=== PATIENT | female | born 1935 | race Caucasian/White ===

== ENCOUNTER → 2018-01-18 | Outpatient (CLI) | payer MEDICARE, OTHER ==
[~2018-01-18] MED LIST: ADULT LOW DOSE81 MG PO; AMARYL1 MG PO; COZAAR 50 MG TA50 M2 PO; DIGOXIN250 MCG PO; GLUCOPHAGE500 MG PO; HYDROCODONE-ACE15 ML PO; LISINOPRIL5 MG PO; MEDROLDOSEPACK PO; METFORMIN HCL500 MG PO; METFORMIN PO; METOPROLOL SUC100 MG PO; NAPROSYN500 MG PO; NEURONTIN 300300 M1 PO; OMEPRAZOLE 20 M20 M1 PO; OMEPRAZOLE20 MG PO; OMEPRAZOLE40 MG PO; PACERONE 200 M200 M1 PO; PRADAXA150 MG PO; PROTONIX40 M1 PO; SIMVASTATIN20 MG PO; TRIAMTERENE-HC1 EAC3 PO
== END ==
LOC: M.RAD 10:23
DX: Z12.31 Encounter for screening mammogram for malignant neoplasm of breast (principal)

== ENCOUNTER 2020-01-03 09:17 | Observation (INO) | payer MEDICARE, OTHER ==
[~2020-01-03] VITALS: Ht 167.6 cm; Wt 90.3 kg
[2020-01-03] VITALS (11 sets, daily range): BP systolic 137–171; BP diastolic 75–93
--- NOTE | ~2020-01-03 | D ---
[address] [address] DISCHARGE SUMMARY Name: KANDIS SMITH Daniel Room: [address] MRob#: [id number] Admission: 01/03/20 Attend Phys: Moshe Cabrera MD Discharge: Date of : 37 Report #: [id number] THIS REPORT FOR: //name// cc: Bety Wan Linda J. DO THIS REPORT FOR: //name// CC: Bety Palomino DISCHARGE DIAGNOSES: 1. Coronary artery disease. 2. Unstable angina. 3. Chronic atrial fibrillation. 4. Chronic anticoagulation. 5. Hypertension. 6. Percutaneous coronary intervention to the LAD. PROCEDURES DURING THE HOSPITALIZATION: 1. Left heart catheterization. 2. Coronary angiography. 3. Percutaneous coronary intervention to the mid left anterior descending coronary artery. 4. Temporary pacemaker placement. HOSPITAL COURSE: The patient was admitted with progressive chest discomfort. Stress testing suggested anteroapical ischemia. On catheterization, she was found to have a high grade 99% mid left anterior descending coronary artery stenosis. The patient underwent percutaneous coronary intervention with a single drug-eluting stent placed to the mid left anterior descending coronary artery with excellent result. The patient did have transient heart block with a procedure necessitating temporary pacemaker placement. The patient's temporary pacemaker was able to remove several hours later as her heart rhythm had recovered. She does have chronic atrial fibrillation. She had been on rate controlling medications. The doses were reduced during hospitalization: The patient was started on a statin agent with her new diagnosis of coronary artery disease. The patient's hospital course was otherwise unremarkable. She is being discharged in stable condition. DISCHARGE MEDICATIONS: At discharge will be Effient 10 mg p.o. every day, aspirin 81 mg p.o. daily, Pradaxa 150 mg p.o. b.i.d., atorvastatin 40 mg p.o. daily, Nitrostat sublingual p.r.n. Maxzide 75/50 mg 1 tablet daily, metformin 500 mg q.a.m. and 1000 mg q.p.m., losartan 50 mg daily, Protonix 40 mg daily, hydrocodone/acetaminophen 7.5/325 elixir every 4 hours p.r.n. metformin 500 mg by mouth every morning and 1000 g by [place] [address] DISCHARGE SUMMARY Name: KANDIS SMITH Room: [address]#: [id number] Admission: 01/03/20 Attend Phys: Moshe Cabrera MD Discharge: Date of : 37 Report #: [id number] DISPOSITION: The patient is to follow up with our nurse practitioner in 4 weeks and myself in 3 months. By: [id number] MD, FACC /nt
[2020-01-03 10:01] LABS: HEMATOCRIT 38.5 % (37.0-47.0); HEMOGLOBIN 12.8 gm/dL (12.0-15.0); MCH 28.6 pg (26.0-34.0); MCHC 33.3 g/dL (28.0-37.0); MCV 85.7 fL (80.0-100.0); MPV 7.8 fl. (7.2-11.1); RBC 4.49 mil/uL (4.20-5.00); RDW-CV 16.9 % (10.5-14.5); WBC 8.1 thou/uL (4.0-11.0)
[2020-01-03 10:55] LABS: CALCIUM 8.7 mg/dL (8.5-10.1); CREATININE 0.9 mg/dL (0.6-1.3); POTASSIUM 5.1 mmol/L (3.5-5.1)
[2020-01-03 10:57] LABS: APTT 26.7 Seconds (25.0-31.3); INR 1.1; PROTIME 11.4 Seconds (9.20-11.50)
--- NOTE | 2020-01-03 11:22 | EKG ---
[place] [address] ELECTROCARDIOGRAM REPORT Name: KANDIS SMITH Room: [facility]#: [id number] Admission: 01/03/20 Attend Phys: Moshe Cabrera, Discharge: Date of : 37 Date of Service: 01/03/20 1003 Report #: [id number] THIS REPORT FOR: cc: Bety Wan Linda J. 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1935 Requested By: Moshe Cabrera Order Number: [id number] Reading MD: Jackson Durán Measurements Intervals [place] Rate: 63 P: CT: QRS: -4 QRSD: 137 T: -36 QT: 405 QTc: 415 Interpretive Statements Atrial fibrillation Right bundle branch block Compared to ECG 04/25/2013 09:51:33 Right bundle-branch block now present Sinus rhythm no longer present First degree AV block no longer present Electronically Signed On 01-03-2020 11:21:07 BASEBALL GLOVE SHAPER by Jackson Durán [email or web address] <ELECTRONICALLY SIGNED> By: Jackson Durán MD, [facility] 01/03/20 1121 1003 Jackson Durán MD, [facility] /EPI
--- NOTE | 2020-01-03 15:12 | CARD ---
[address] [address] CARDIAC CATH REPORT Name: KANDIS SMITH Room: [address] IN ..#: [id number] Admission: 01/03/20 Attend Phys: Moshe Cabrera MD Discharge: Date of : 37 Report #: [id number] THIS REPORT FOR: //name// cc: Bety Wan Linda J. DO ~ THIS REPORT FOR: //name// APPROVED REPORT Study performed: 01/03/2020 09:58:16 Patient Details The patient is a 84 year-old female Event Personnel Luz Maria Albarado RN Gifted Program Teacher, Seferino Gregory TUNNEL MAN Scrub, Emily Cox RTR Scrub, Moshe Cabrera Director Of Compensation, , Jackson Durán White Mixing Operator, Marcell De Anda TUNNEL MAN, monitor Procedures Performed Left heart catheterization selective coronary arteriography and percutaneous coronary intervention to the mid LAD; a pacemaker from the right femoral approach in the context of high-grade AV block with underlying atrial fibrillation Indication Positive stress test Risk Factors Hypercholesterolemia, Hypertension Admission/Lab Medications/Medications given during procedure Angiomax bolus and infusion Procedure Narrative The patient was brought electively to the Cardiac Catheterization Laboratory and was prepped and draped in a sterile manner. The right femoral was infiltrated with 2% Lidocaine subcutaneous anesthesia. A [place] 6 FR sheath was inserted into the right femoral artery. Coronary angiography was performed using coronary diagnostic catheters. The right coronary system was accessed and visualized with a Diagnostic - JR4 catheter. The left coronary system was accessed and visualized with a Diagnostic - JL4 catheter. The left ventricle was accessed and visualized with a Diagnostic - Ang PIG catheter. Left ventricular/Aortic Valve [place] [address] CARDIAC CATH REPORT Name: KANDIS SMITH Room: [address]#: [id number] Admission: 01/03/20 Attend Phys: Moshe Cabrera MD Discharge: Date of : 37 Report #: [id number] pullback. Pre-demployment femoral angiogram was performed . Closure device was deployed with a 6 Fr Angioseal STS 6Fr. The patient tolerated the procedure well and there were no complications associated with the procedure. There was no hematoma. Intraoperative Conscious Sedation Sedation start time: 1135 Case end Time: 1227 Fentanyl 25 mcg Versed 2 mg Fluoro Time: 14.2 minutes Dose: DAP 397025 cGycm2 1621 mGy Contrast Type and Amount: Visipaque 190 ml Coronary Angiography The patient's coronary anatomy is right dominant. Diagnostic Cath Left Main 0% narrowing LAD 30 Percent proximal LAD narrowing with 90% mid vessel stenosis with a question of intraluminal thrombus at the site of 90% stenosis Circumflex 0% narrowing Right Coronary Dominant vessel with 30% mid vessel narrowing Left Ventriculography Left Ventriculography was not performed. IVUS Findings AngioSculpt PTCA 2.5 X 10mm Hemodynamics The aortic pressure is 151/78 mmHg with a mean of 54 mmHg. The left ventricular pressure is 126/59 mmHg with a mean of mmHg. The left ventricular end diastolic pressure is 60 mmHg. There was no gradient across the aortic valve upon pullback. PCI Technique Lesion Anticoagulation was achieved with Angiomax. Patient was preloaded with Angiomax IV 12 ml. Percutaneous coronary intervention was performed on the mid left anterior descending artery segment. The lesion stenosis prior to intervention was 90% with ROBB 3 flow. A 6F XB LAD 3.5 Guide Catheter was used to engage the ostium. A IG: BMW 190cm Interventional Guidewire was used to cross the [place] [address] CARDIAC CATH REPORT Name: KANDIS SMITH Room: [address]#: [id number] Admission: 01/03/20 Attend Phys: Moshe Cabrera MD Discharge: Date of : 36 Report #: [id number] A Balloon catheter Trek RX 2.25 X 12 was inserted and inflated up to 10.00atm for 8seconds. Additional Inflation: 8.00atm for 8seconds. Additional Inflation: 14.00atm for 15seconds. 10 nando for 6 sec; 2.55 x 10 mm angiosculpt balloon inflated to 14 nando in the mid LAD STENT DEPLOYMENT A drug-eluting stent Xience Ruby 2.5X12mm was inserted and inflated up to 15atm for andseconds. POST STENT DEPLOYMENT BALLOON DILATION A Balloon catheter NC Trek RX 2.75 X 8 was inserted and inflated up to 18atm for 10seconds. Final angiography reveals 0 % stenosis with ROBB 3 flow. COMMENTS Temporary pacemaker inserted prior to the intervention via RFV and sutured in place post intervention BALLOON DILATION A Balloon catheter AngioSculpt PTCA 2.5 X 10mm was inserted and inflated up to 10.00atm for 16seconds. Additional Inflation: 12.00atm for 15seconds. STENT DEPLOYMENT A stent Xience Ruby 2.5X12mm was inserted and inflated up to 10.00atm for 10seconds. Additional Inflation: 12.00atm for 10seconds. Additional Inflation: 14.00atm for 9seconds. POST STENT DEPLOYMENT BALLOON DILATION A Balloon catheter NC Trek RX 2.75 X 8 was inserted and inflated up to 16.00atm for 14seconds. Additional Inflation: 18.00atm for 7seconds. Conclusion #1 significant coronary artery disease characterized by the following: A 30% proximal and 90% mid LAD stenosis with a question of local thrombus at the 90% site B 30% narrowing of the midportion of the dominant right coronary artery #2 [place] [address] CARDIAC CATH REPORT Name: KANDIS SMITH Room: [address] IN [facility]#: [id number] Admission: 01/03/20 Attend Phys: Moshe Cabrera MD Discharge: Date of : 37 Report #: [id number] #3 placement of a temporary pacemaker for high-grade AV block in the setting of underlying atrial fibrillation #4 successful angioplasty atherotomy/atherectomy and stenting of the mid LAD with 0% residual narrowing ROBB-3 flow to the distal vessel and no residual thrombus. Recommendations Cardiac Risk Reduction Program Aggressive Medical Therapy Medications Administered Aspirin (any) Clopidogrel Diagnostic Cath Approved by: Moshe Cabrera MD Date/Time: 01/03/2020 15:08:56 <ELECTRONICALLY SIGNED> By: Jackson Durán MD, [facility] 01/03/20 1511 10 1511Jackson Durán MD, FACC /INF
[2020-01-04] VITALS (26 sets, daily range): BP systolic 116–163; BP diastolic 56–109
[2020-01-04 04:30] LABS: ALBUMIN 3.5 g/dL (3.4-5.0); ALKALINE PHOSPHATASE 95 U/L (46-116); ANION GAP 9 mmol/L (7-16); BUN 20 mg/dL (7-18); CHLORIDE 100 mmol/L (98-107); CHOLESTEROL 145 mg/dL (<200); CO2 30 mmol/L (21-32); GLUCOSE 142 mg/dL (70-99); HDL CHOLESTEROL 51 mg/dL (>40); LDL CHOLESTEROL 82 mg/dL (<100); SGOT 20 U/L (15-37); SGPT 22 U/L (30-65); SODIUM 139 mmol/L (136-145); TC:HDL 2.8 Ratio (Not establshd); TOTAL BILIRUBIN 0.7 mg/dL (<0.1-1.0); TOTAL PROTEIN 8.1 g/dL (6.4-8.2); TRIGLYCERIDE 60 mg/dL (<150); VLDL 12 mg/dL (<40)
[2020-01-04 04:33] LABS: HEMATOCRIT 42.4 % (37.0-47.0); MCH 28.3 pg (26.0-34.0); MCHC 32.9 g/dL (28.0-37.0); MCV 85.9 fL (80.0-100.0); MPV 7.4 fl. (7.2-11.1); RBC 4.94 mil/uL (4.20-5.00); RDW-CV 16.8 % (10.5-14.5); WBC 8.7 thou/uL (4.0-11.0)
[2020-01-04 04:59] LABS: SERUM ASSESSMENT Clear
[2020-01-04] MEDS ORDERED: ASPIR 8181 MG PO (08:00)
[2020-01-04] MEDS ORDERED: EFFIENT10 MG PO (08:00)
[2020-01-04] MEDS ORDERED: METOPROLOL SUC100 MG PO (08:00)
[2020-01-04] MEDS ORDERED: LIPITOR40 MG PO (08:00)
[2020-01-04] MEDS ORDERED: NITROGLYCERIN0.4 MG SUBLING (08:00)
--- NOTE | 2020-01-04 09:46 | EKG ---
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 [employer] Activity: : 1935 Requested By: Moshe Cabrera Order Number: [id number] Dee MD: Jackson Durán Measurements Intervals [place] Rate: 83 P: [place]: QRS: -72 QRSD: 134 T: -40 QT: 408 QTc: 480 Interpretive Statements Atrial fibrillation RBBB and LAFB Compared to ECG 01/03/2020 10:03:39 Left anterior fascicular block now present Electronically Signed On 01-04-2020 9:45:56 ASSISTANT COUNTY ATTORNEY by Jackson Durán [email or web address] <ELECTRONICALLY SIGNED> By: Jackson Durán MD, [facility] 01/04/20 0945 0 0 Jackson Druán MD, [facility] /EPI
[2020-01-04] MEDS ORDERED: PRADAXA150 MG PO (11:06)
[2020-01-04] MEDS ORDERED: METFORMIN HCL500 MG PO (11:13)
[2020-01-04] MEDS ORDERED: GLUCOPHAGE500 MG PO (11:13)
== END 2020-01-04 15:31 | disposition home or self-care (01) ==
LOC: M.CL 09:17 → M.ICU 14:56 → M.TBA-CV 14:56 → M.ICU 14:56
PROVIDERS: ADMIT Internal Medicine Cardiovascular Disease
DX: I25.110 Atherosclerotic heart disease of native coronary artery with unstable angina pectoris (principal); I44.30 Unspecified atrioventricular block; I48.20 Chronic atrial fibrillation, unspecified; I10 Essential (primary) hypertension; E78.00 Pure hypercholesterolemia, unspecified

== ENCOUNTER → 2020-06-05 | Outpatient (CLI) | payer MEDICARE, OTHER ==
[~2020-06-05] MED LIST changes: +ASPIR 8181 MG PO; +EFFIENT10 MG PO; +LIPITOR40 MG PO; +NITROGLYCERIN0.4 MG SUBLING
== END ==
LOC: M.LAB 09:37
PROVIDERS: ATTEND Registered Nurse
DX: I48.21 Permanent atrial fibrillation (principal)

== ENCOUNTER → 2020-06-19 | Outpatient (CLI) | payer MEDICARE, OTHER ==
[~2020-06-19] VITALS: Ht 165.1 cm; Wt 87.1 kg
[2020-06-19 09:52] VITALS: BP 142/81
[2020-06-19 09:56] LABS: HEMATOCRIT 39.4 % (37.0-47.0); HEMOGLOBIN 13.7 gm/dL (12.0-15.0); MCH 32.6 pg (26.0-34.0); MCHC 34.9 g/dL (28.0-37.0); MCV 93.5 fL (80.0-100.0); MPV 7.7 fl. (7.2-11.1); RBC 4.21 mil/uL (4.20-5.00); RDW-CV 14.2 % (10.5-14.5); WBC 9.1 thou/uL (4.0-11.0)
[2020-06-19 10:15] LABS: ANION GAP 12 mmol/L (7-16); BUN 31 mg/dL (7-18); CALCIUM 9.2 mg/dL (8.5-10.1); CHLORIDE 104 mmol/L (98-107); CO2 23 mmol/L (21-32); CREATININE 1.2 mg/dL (0.6-1.3); GLUCOSE 128 mg/dL (70-99); POTASSIUM 3.9 mmol/L (3.5-5.1); SODIUM 139 mmol/L (136-145)
[2020-06-19 10:20] LABS: ALBUMIN 3.9 g/dL (3.4-5.0); ALKALINE PHOSPHATASE 88 U/L (46-116); SGOT 19 U/L (15-37); SGPT 21 U/L (30-65); TOTAL BILIRUBIN 0.6 mg/dL (<0.1-1.0); TOTAL PROTEIN 8.2 g/dL (6.4-8.2)
[2020-06-19 10:25] LABS: APTT 27.4 Seconds (25.0-31.3); INR 1.1; PROTIME 11.3 Seconds (9.20-11.50)
[2020-06-19 10:44] LABS: CHOLESTEROL 105 mg/dL (<200); HDL CHOLESTEROL 46 mg/dL (>40); LDL CHOLESTEROL 41 mg/dL (<100); TC:HDL 2.3 Ratio (Not establshd); TRIGLYCERIDE 90 mg/dL (<150); VLDL 18 mg/dL (<40)
[2020-06-19 10:45] LABS: SERUM ASSESSMENT Clear
[2020-06-19 11:00] VITALS: BP 142/90
[2020-06-19 12:00] VITALS: BP 139/93
--- NOTE | 2020-06-19 13:13 | EKG ---
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
[2020-06-19 14:42] VITALS: BP 135/80
--- NOTE | 2020-06-21 13:30 | CARD ---
[address] [address] CARDIAC CATH REPORT Name: KANDIS SMITH Room: [facility]#: [id number] Admission: 06/19/20 Attend Phys: Moshe Cabrera MD Discharge: Date of : 37 Report #: [id number] THIS REPORT FOR: //name// cc: Bety Wan Linda J. DO ~ APPROVED REPORT Study performed: 06/19/2020 13:00:33 Patient Status: Out-Patient Room #: Event Personnel: Moshe Cabrera Magazine Writer, Elizabeth Sosa RN RN, Seferino Gregory Scrub, Emily Cox RTR Monitor Exam: Insertion of Single Chamber Permanent Pacemaker The patient is a 85 year-old female with a history of . Conscious Sedation Start time: 13:30 End Time: 13:53 Fentanyl 25 mcg Versed 1 mg Implanted Devices: Biotronik Edora 8 SRT, model #951970, serial #[id number] single-chamber pulse generator. Biotronik Solia S 53, model #288928, serial #[id number] ventricular lead. Procedure The patient underwent informed consent. We discussed the details of the procedure including the risks, which include, but not limited to bleeding, infection, vascular damage, cardiac perforation, and pneumothorax. She understood these risks and was willing to proceed. As such, she was brought to the EP/Cardiac Catheterization laboratory in a fasting and sedated state and prepped and draped in a sterile fashion, received IV antibiotics prior to initiation of the procedure and a venogram was performed showing patency of the left axillary vein. The patient underwent conscious sedation, with no related complications. The patient was brought to the EP/Cardiac Catheterization laboratory and the left chest and shoulder were prepped and draped in a sterile manner. During this case, Fluoroscopy and omnipaque 20 ml were used for imaging. The left subclavian region was infiltrated with 2% Lidocaine with Epinephrine subcutaneous anesthesia. A transverse incision was made in [place] [address] CARDIAC CATH REPORT Name: KANDIS SMITH Room: [facility]#: [id number] Admission: 06/19/20 Attend Phys: Moshe Cabrera MD Discharge: Date of : 36 Report #: [id number] The subcutaneous pocket was formed via blunt dissection. Percutaneous venous access was achieved and an introducer sheath was inserted into the left Subclavian vein. Sheaths were positions using the modified Seldinger technique Utilizing fluoroscopic guidance, the ventricular lead wire was advanced over the wires and positioned in the right atria and right ventricle respectively. Capturing and sensing thresholds were verified. Electrode Parameters R Wave: 10.0 mV Ventricular Threshold: 0.5 V at 0.40 ms Ventricular Resistance: 620 ohms Single Chamber The atrial and ventricular leads were then secured using 0 silk sutures. The subcutaneous pocket was irrigated with vancomycin antibiotic solution.The ventricular lead was attached to the appropriate receptacle on the pulse generator and set screws firmly tightened to insure adequate contact and stability. The lead and pulse generator were placed into the subcutaneous pocket. Sharp and sponge counts were confirmed to be correct. At this time the pocket was closed subcutaneously with a 2.0 Vicryl and the skin was closed with a 4.0 Vicryl. The operative site was dressed in sterile fashion with benzoin, steri strips, and stratabsorb and the patient was transferred to the floor in stable condition. Complications The patient tolerated the procedure well and there were no complications associated with the procedure. Findings Specimens Removed: No Estimated Blood Loss: 5 ml Conclusion 1. Atrial fibrillation with slow ventricular response rate. 2. Successful placement of a single-chamber pacemaker with ventricular [place] [address] CARDIAC CATH REPORT Name: SARAHKANDIS Sanchez Room: [facility]#: [id number] Admission: 06/19/20 Attend Phys: Moshe Cabrera MD Discharge: Date of : 37 Report #: [id number] 1. Follow-up site check in 1 week. 2. Follow-up pacemaker interrogation in 1 to 2 months. <ELECTRONICALLY SIGNED> By: Moshe Cabrera MD, FACC 06/21/200 29Michael Selene Cabrera MD, FAC /INF
== END ==
LOC: M.CL 09:22 → EDSTATUS 11:00 → M.CL 11:00
PROVIDERS: ATTEND Internal Medicine Cardiovascular Disease
DX: I48.19 Other persistent atrial fibrillation (principal); R00.1 Bradycardia, unspecified; I10 Essential (primary) hypertension; I25.10 Atherosclerotic heart disease of native coronary artery without angina pectoris; E11.9 Type 2 diabetes mellitus without complications; E78.2 Mixed hyperlipidemia; K21.9 Gastro-esophageal reflux disease without esophagitis; E03.9 Hypothyroidism, unspecified; G47.30 Sleep apnea, unspecified; Z82.49 Family history of ischemic heart disease and other diseases of the circulatory system; Z83.3 Family history of diabetes mellitus; Z79.84 Long term (current) use of oral hypoglycemic drugs; Z79.899 Other long term (current) drug therapy; Z98.890 Other specified postprocedural states; Z98.51 Tubal ligation status; Z85.828 Personal history of other malignant neoplasm of skin

== ENCOUNTER 2021-12-04 14:07 | Inpatient (IN) | payer OTHER ==
[~2021-12-04] VITALS: Ht 167.6 cm; Wt 68.0 kg
[2021-12-04 14:15] VITALS: BP 107/59
[2021-12-04 18:34] LABS: URINE BLOOD 1+ (Negative); URINE COLOR YELLOW; URINE GLUCOSE-RANDOM NEGATIVE (Negative); URINE KETONES TRACE (Negative); URINE NITRITE-REFLEX NEGATIVE (Negative); URINE PROTEIN 1+ (Negative)
[2021-12-04 18:36] LABS: ICTOTEST (BILI CONFIRMATORY) Negative (Negative); URINE BILIRUBIN 1+ (Negative); URINE CLARITY CLOUDY; URINE LEUKOCYTES-REFLEX 2+ (Negative)
[2021-12-04 18:37] LABS: HEMATOCRIT 42.3 % (37.0-47.0); HEMOGLOBIN 13.8 gm/dL (12.0-15.0); MCHC 32.6 g/dL (28.0-37.0); MPV 8.6 fl. (7.2-11.1); NUCLEATED RBCS 0 /100WBC; PLATELET COUNT* 155 thou/uL (150-400); RBC 4.91 mil/uL (4.20-5.00); RDW-CV 16.4 % (10.5-14.5); WBC 15.6 thou/uL (4.0-11.0)
[2021-12-04 18:43] LABS: BACTERIA-REFLEX >30 Many /HPF (None Seen); CASTS None Seen /LPF (None Seen); CRYSTALS None Seen /LPF (None Seen); SQUAMOUS 0-3 Few /LPF (0-3); URINE RBC 3-10 Few /HPF (0-2); URINE WBC-REFLEX >25 Many /HPF (0-5)
[2021-12-04 18:45] LABS: CALCIUM 8.7 mg/dL (8.5-10.1); CREATININE 1.5 mg/dL (0.6-1.3); POTASSIUM 3.5 mmol/L (3.5-5.1)
[2021-12-04 18:50] LABS: ALBUMIN 3.2 g/dL (3.4-5.0); TOTAL BILIRUBIN 1.7 mg/dL (<0.1-1.0); TOTAL PROTEIN 7.9 g/dL (6.4-8.2)
[2021-12-04 18:54] LABS: ABSOLUTE LYMPHOCYTES 0.5 thou/uL (0.8-5.3); ABSOLUTE MONOCYTES 0.5 thou/uL (0.0-1.2); ABSOLUTE NEUTROPHILS 14.7 thou/uL (1.6-8.1); PLATELET ESTIMATE ADEQUATE
[2021-12-04] MEDS ORDERED: XARELTO20 MG PO (20:41)
[2021-12-04 21:50] VITALS: BP 141/83
[2021-12-05 00:55] VITALS: BP 141/83
[2021-12-05 05:00] VITALS: BP 148/62
[2021-12-05 09:00] VITALS: BP 123/73
[2021-12-05 09:01] LABS: CALCIUM 7.8 mg/dL (8.5-10.1); CREATININE 1.2 mg/dL (0.6-1.3); POTASSIUM 3.3 mmol/L (3.5-5.1)
[2021-12-05 09:04] LABS: MAGNESIUM 1.8 mg/dL (1.8-2.4); PHOSPHORUS* 2.4 mg/dL (2.5-4.9)
--- NOTE | 2021-12-05 12:25 | EKG ---
[place] [address] ELECTROCARDIOGRAM REPORT Name: KANDIS SMITH Room: [facility] ADM IN ..#: [id number] Admission: 12/04/21 Attend Phys: Mac Linder Discharge: Date of : 37 Date of Service: 12/04/21 1825 Report #: [id number] THIS REPORT FOR: //name// [facility] ED Test Date: 2021-12-04 Test Time: 18:25:09 Pat Name: KANDIS SMITH Department: Room: [facility] Gender: F Verification Clerk: : 1935 Requested By: Jumana Sarmiento Order Number: [id number] MD: Dioni Larsen Measurements Intervals [place] Rate: 110 P: LA: QRS: -57 QRSD: 143 T: -29 QT: 339 QTc: 459 Interpretive Statements Atrial fibrillation Ventricular premature complex RBBB and LAFB Compared to ECG 06/19/2020 10:23:55 Ventricular premature complex(es) now present Left anterior fascicular block now present Electronically Signed On 12-05-2021 12:25:31 ANALYTICAL MANAGER by Dioni Larsen [email or web address] <ELECTRONICALLY SIGNED> By: Ana Luisa Larsen MD, FACC 12/05/21 1225 24 24 Ana Luisa Larsen MD, [facility] /EPI
[2021-12-05 17:00] VITALS: BP 150/84
[2021-12-05 20:00] VITALS: BP 148/64
--- NOTE | 2021-12-05 23:20 | NUR ---
AT APPROXIMATELY 2230 PT C/O FEELING COLD AND WAS TRIMMERING UNCONTROLLABLE. AT THE TIME PT'S HR WAS SUSTAINED BETWEEN 120-135. PT WAS AFEBRILE, BP WAS 149/76 WITH SATS 97. PT HAD GOTTEN UP TO [facility] [place] DIFFICULTY. PT REQUESTED TO HAVE HER BIOFREEZE APPLIED TO HER LEFT CALF R/T PAIN. THIS RN APPLIED THE BIOFREEZE AND WITHIN 15 MINS OF DOING SO, PT HAD A SUDDEN CHANGE IN HER HR, AND AGAIN WAS TRIMMERING UNCONTROLLABLE. GODFREY KAUFMAN WAS NOTIFIED OF THIS SUDDEN CHANGE. PT IS ON ANTICOAGS. NO ORDERS WERE GIVEN AND PT SEEMS TO FEEL BETTER, DENIES FEELING COLD AND TRIMMERS WERE STOPPED. THE PT HAS A PACER AND WAS PLACED ON THE MONITOR TO REFLECT THE FACT THAT SHE HAS A PACEMAKER. PER THE MONITOR, PT IS A/A-V PACED AND HAS AN UNDERLINED RHYTHM OF A-FLUTTER. WILL CONTINUE TO MONITOR.
[2021-12-06 08:00] VITALS: BP 129/71
[2021-12-06 10:08] LABS: HEMATOCRIT 35.2 % (37.0-47.0); MCH 27.7 pg (26.0-34.0); MCHC 32.5 g/dL (28.0-37.0); MCV 85.3 fL (80.0-100.0); MPV 8.9 fl. (7.2-11.1); RBC 4.12 mil/uL (4.20-5.00); RDW-CV 16.4 % (10.5-14.5); WBC 13.9 thou/uL (4.0-11.0)
[2021-12-06 10:22] LABS: HEMOGLOBIN 11.4 gm/dL (12.0-15.0)
[2021-12-06 10:23] LABS: ALBUMIN 2.2 g/dL (3.4-5.0); POTASSIUM 3.9 mmol/L (3.5-5.1); TOTAL BILIRUBIN 1.5 mg/dL (<0.1-1.0); TOTAL PROTEIN 6.5 g/dL (6.4-8.2)
[2021-12-06 14:00] VITALS: BP 117/69
[2021-12-06 19:45] VITALS: BP 146/80
[2021-12-06 20:00] VITALS: BP 120/70
[2021-12-07] VITALS: BP 139/80
[2021-12-07 04:00] VITALS: BP 109/60
--- NOTE | 2021-12-07 04:18 | NUR ---
PATIENT SLEPT WELL DURING THIS SHIFT. PT UP TO [facility] WITH STANDBY ASSIST. PT REQUESTED PAIN MEDICATION X1 AND RECEIVED HYDROCODONE 1 TAB. PT IS ON O2 @ 1 LITER PER NASAL CANNULA. PT WITH FLUIDS INFUSING PER DR ORDER. FREQUENTLY USED ITEMS AND CALL LIGHT WITHIN REACH. SIDERAILS UPX2 AND BED ALARM ON. WILL CONTINUE TO MONITOR.
[2021-12-07 09:00] VITALS: BP 121/66
[2021-12-07 10:51] LABS: ABSOLUTE BASOPHILS 0.1 thou/uL (0.0-0.2); ABSOLUTE EOSINOPHILS 0.1 thou/uL (0.0-0.7); ABSOLUTE LYMPHOCYTES 1.2 thou/uL (0.8-5.3); ABSOLUTE MONOCYTES 1.6 thou/uL (0.0-1.2); ABSOLUTE NEUTROPHILS 10.5 thou/uL (1.6-8.1); BASOPHILS 0.5 %; EOSINOPHILS 0.5 %; HEMATOCRIT 34.6 % (37.0-47.0); HEMOGLOBIN 11.1 gm/dL (12.0-15.0); LYMPHOCYTES 8.9 %; MCH 27.8 pg (26.0-34.0); MCHC 32.1 g/dL (28.0-37.0); MCV 86.6 fL (80.0-100.0); MONOCYTES 11.6 %; MPV 9.1 fl. (7.2-11.1); NUCLEATED RBCS 0 /100WBC; PLATELET COUNT* 168 thou/uL (150-400); POLYS 78.5 %; RBC 3.99 mil/uL (4.20-5.00); RDW-CV 16.8 % (10.5-14.5); WBC 13.4 thou/uL (4.0-11.0)
[2021-12-07 11:01] LABS: ALBUMIN 2.2 g/dL (3.4-5.0); CALCIUM 7.7 mg/dL (8.5-10.1); CREATININE 0.9 mg/dL (0.6-1.3); POTASSIUM 3.7 mmol/L (3.5-5.1); TOTAL PROTEIN 5.6 g/dL (6.4-8.2)
--- NOTE | 2021-12-07 16:48 | NUR ---
Pt is admitted to the hospital on 12/04/21 with UTI. Called dtr - Kristine to complete assessment. Pt lives with spouse in a house with 2 steps to enter. Pt was independent in ambulation and ADL's. No hx of HH/DME/ or SNF. Doctor is recommending home with HH vs SNF. We are currently waiting on therapy evals to be completed to see what the recommendations are - discussed with dtr. She reports no preference for HH. CM to continue to follow for discharge planning.
[2021-12-07 17:25] VITALS: BP 143/79
[2021-12-07 20:00] VITALS: BP 132/70
[2021-12-08] VITALS: BP 145/72
--- NOTE | 2021-12-08 04:01 | NUR ---
PATIENT SLEPT WELL DURING THIS SHIFT. PT REQUESTED PAIN MEDICATION AT HS AND SLEPT MOST OF THE NIGHT. PT WITH FLUIDS INFUSING PER DR ORDER. PT USES CALL LIGHT APPROPRIATELY FOR ASSISTANCE TO BSC. PT DENIES NEEDS AT THIS TIME. FREQUENTLY USED ITEMS AND CALL LIGHT WITHIN REACH. SIDERAILS UPX2 AND BED ALARM ON. WILL CONTINUE TO MONITOR.
[2021-12-08 08:30] VITALS: BP 127/74
[2021-12-08 12:30] VITALS: BP 144/81
--- NOTE | 2021-12-08 16:04 | NUR ---
Doctor and therapy are recommending SNF. Called dtr - Kristine Schaefer at: [phone] to discuss. She is in agreement with SNF placement. She would prefer [facility]. Therapy evals were available just now - faxed referral to [facility] and left a message for Cassy in admissions asking if they would accept and if they [facility]. CM to continue to follow for discharge planning.
--- NOTE | 2021-12-08 19:32 | NUR ---
AT 1850, AUTO BRAKE MECHANIC WAS CHECKING ON PATIENT. PATIENT WAS SHIVERING PERFUSELY AND HAVING LABORED BREATHING. HER O2 SAT WAS IN THE 60'S. NURSE PLACED NONREBREATHER AT FULL FLOW AND IT TOOK 2 MINUTES FOR PATIENT TO RECOVER HER O2 SAT TO THE 90'S. PATIENT TEMP WAS 99.8, GLUCOSE WAS 191, HR WAS TACHY BETWEEN 100-110. AFTER PATIENT WAS TREATED WITH OXYGENFOR 10 MINUTES, SHE STOPPED SHIVERING AND REPORTED FEELING "BACK TO NORMAL". AFTER CONSULTING DR. LANDERS, A CTA CHEST PE PROTOCOL WAS ORDERED. PATIENT REPORTS THE ONLY THING THAT FELT WEIRD DURING THE EPISODE WAS HOW COLD SHE GOT.
[2021-12-08 20:00] VITALS: BP 128/73
[2021-12-08 23:42] VITALS: BP 145/86
[2021-12-09 04:00] VITALS: BP 153/67
--- NOTE | 2021-12-09 06:00 | NUR ---
ASSUMED PT CARE AT 1930. NURSING ASSESSMENT COMPLETED AT START OF SHIFT. PT AAOX4. VOICED NO CONCERNS THIS SHIFT. HOURLY ROUNDING COMPLETED. CALL LIGHT WITHIN REACH.
[2021-12-09 08:11] VITALS: BP 155/72
[2021-12-09 11:34] VITALS: BP 133/78
--- NOTE | 2021-12-09 12:41 | NUR ---
REPORT GIVEN TO GARY NURSE TAKING OVER AT [facility]
--- NOTE | 2021-12-09 12:44 | NUR ---
Pt has been accepted to [facility] and will dicharge today. DA124 Code: [id number]. Called dtr - Kristine Schaefer and informed her of discharge with garbage pick up worker time of 3-3:30. Dtr in agreement with discharge plan.
--- NOTE | 2021-12-10 07:15 | NUR ---
Dr Linder was notified of a blood culture result. Patient has been discharged to [facility]. Dr Linder verbalized that he would followup and provide appropriate medication.
== END 2021-12-09 17:00 | DRG 871 ==
LOC: M.ERS 14:07 → M.TBA-ER 20:33 → M.2W 20:33
PROVIDERS: Physician Assistant; ADMIT Internal Medicine; ATTEND Internal Medicine
PROC: 5A0935A Assistance with Respiratory Ventilation, Less than 24 Consecutive Hours, High Flow/Velocity Cannula (ICD-10-PCS; principal; 2021-12-06)
DX: A41.9 Sepsis, unspecified organism (principal); N17.0 Acute kidney failure with tubular necrosis; N39.0 Urinary tract infection, site not specified; E87.1 Hypo-osmolality and hyponatremia; E46 Unspecified protein-calorie malnutrition; Z20.822 Contact with and (suspected) exposure to COVID-19; I48.91 Unspecified atrial fibrillation; E78.5 Hyperlipidemia, unspecified; K21.9 Gastro-esophageal reflux disease without esophagitis; I12.9 Hypertensive chronic kidney disease with stage 1 through stage 4 chronic kidney disease, or unspecified chronic kidney disease; E11.22 Type 2 diabetes mellitus with diabetic chronic kidney disease; N18.9 Chronic kidney disease, unspecified; E87.6 Hypokalemia; B96.89 Other specified bacterial agents as the cause of diseases classified elsewhere; Z98.42 Cataract extraction status, left eye; Z98.41 Cataract extraction status, right eye; Z88.0 Allergy status to penicillin; Z68.24 Body mass index [BMI] 24.0-24.9, adult

== ENCOUNTER → 2021-12-22 | Outpatient (CLI) | payer OTHER ==
[~2021-12-22] MED LIST changes: +XARELTO20 MG PO
== END ==
LOC: M.ULTRA 11:30
PROVIDERS: ATTEND Family Medicine
DX: M79.605 Pain in left leg (principal)

== ENCOUNTER 2021-12-27 18:32 | Emergency (ER) | payer OTHER ==
[~2021-12-27] VITALS: Ht 165.1 cm; Wt 72.6 kg
[2021-12-27] MEDS ORDERED: DIGOX125 MCG PO (18:42)
[2021-12-27] MEDS ORDERED: HUMALOG JU100 UNIT/1 SQ (18:45)
[2021-12-27 19:43] LABS: URINE BILIRUBIN NEGATIVE (Negative); URINE BLOOD NEGATIVE (Negative); URINE CLARITY CLEAR; URINE COLOR YELLOW; URINE GLUCOSE-RANDOM NEGATIVE (Negative); URINE KETONES NEGATIVE (Negative); URINE LEUKOCYTES-REFLEX 1+ (Negative); URINE NITRITE-REFLEX NEGATIVE (Negative); URINE PROTEIN NEGATIVE (Negative)
[2021-12-27 19:53] LABS: BACTERIA-REFLEX 1-9 Few /HPF (None Seen); CASTS None Seen /LPF (None Seen); CRYSTALS None Seen /LPF (None Seen); SQUAMOUS 4-10 Moderate /LPF (0-3); URINE RBC 0-2 Rare /HPF (0-2); URINE WBC-REFLEX 6-15 Few /HPF (0-5)
[2021-12-27 20:07] LABS: HEMATOCRIT 39.3 % (37.0-47.0); HEMOGLOBIN 12.9 gm/dL (12.0-15.0); MCH 28.4 pg (26.0-34.0); MCHC 32.9 g/dL (28.0-37.0); MCV 86.3 fL (80.0-100.0); MPV 7.1 fl. (7.2-11.1); RBC 4.55 mil/uL (4.20-5.00); RDW-CV 17.2 % (10.5-14.5); WBC 11.7 thou/uL (4.0-11.0)
[2021-12-27 20:10] LABS: CALCIUM 9.2 mg/dL (8.5-10.1); CREATININE 1.1 mg/dL (0.6-1.3); POTASSIUM 3.9 mmol/L (3.5-5.1)
[2021-12-27 21:47] VITALS: BP 125/81
--- NOTE | 2021-12-28 11:17 | EKG ---
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 Operator: [place] : 1935 Requested By: Jumana Sarmiento Order Number: [id number] MD: Jackson Durán Measurements Intervals [place] Rate: 84 P: [place]: QRS: 4 QRSD: 132 T: -47 QT: 393 QTc: 465 Interpretive Statements Afib/flut and V-paced complexes No further rhythm analysis attempted due to paced rhythm Right bundle branch block Compared to ECG 12/04/2021 18:25:09 Ventricular premature complex(es) no longer present Left anterior fascicular block no longer present Rhythm is predominantly paced Electronically Signed On 12-28-2021 11:17:08 MARINE ANIMAL TRAINER by Jackson Durán [email or web address] <ELECTRONICALLY SIGNED> By: Jackson Durán MD, [facility] 12/28/217 28 28 Jackson Durán MD, [facility] /EPI
== END 2021-12-27 21:47 | disposition still patient (30) ==
LOC: M.ERS 18:32
PROVIDERS: Physician Assistant
DX: M46.46 Discitis, unspecified, lumbar region (principal); Z20.822 Contact with and (suspected) exposure to COVID-19; M86.9 Osteomyelitis, unspecified; N39.0 Urinary tract infection, site not specified; E11.9 Type 2 diabetes mellitus without complications; I10 Essential (primary) hypertension; E78.5 Hyperlipidemia, unspecified; K21.9 Gastro-esophageal reflux disease without esophagitis; Z79.899 Other long term (current) drug therapy; Z90.89 Acquired absence of other organs; Z98.51 Tubal ligation status; Z88.0 Allergy status to penicillin; Z88.5 Allergy status to narcotic agent